=== PATIENT | male | born 1980 | race Caucasian/White ===

== ENCOUNTER 2019-10-04 20:49 | Emergency (ER) | payer BC, OTHER ==
[~2019-10-04] VITALS: Ht 188 cm; Wt 131.7 kg
[~2019-10-04 20:49] MED LIST: AMOX1TAB61 PO; MUPI15CR TP
[2019-10-04 20:57] VITALS: BP 139/98
--- NOTE | 2019-10-04 21:44 | RAD ---
Two-view chest dated 10/04/2019. Comparison made to 06/29/2007. CLINICAL INDICATION: Chest congestion and cough. FINDINGS: PA and lateral views obtained. Heart and mediastinal contours within normal limits. Lungs are clear. No consolidation or pleural effusion. No pneumothorax. Prominent perihilar linear markings, unchanged. IMPRESSION: No acute radiographic abnormality. Stable findings compared to 06/29/2007. Electronically signed by: Rafael Avitia MD (10/04/2019 9:41 PM) [id number]
[2019-10-04 22:02] LABS: INFLUENZA A PATIENT NEGATIVE (NEGATIVE); INFLUENZA B PATIENT NEGATIVE (NEGATIVE)
[2019-10-04] MEDS ORDERED: ALBU2.5V8 IH (22:02)
[2019-10-04] MEDS ORDERED: GUAI118L13 PO (22:02)
[2019-10-04] MEDS ORDERED: BENZ100C PO (22:02)
--- NOTE | 2019-10-04 22:04 | PHYS DOC ---
Past History Past Medical History: Depression, High Cholesterol, Hypertension Additional Past Medical Histor: PTSD Past Surgical History: No Surgical History Smoking: Non-smoker Alcohol Use: Occasionally Drug Use: None Adult General Chief Complaint Chief Complaint: SHORTNESS OF BREATH HPI HPI 39-year-old male presents with 4 day history of shortness of air, generalized malaise, and cough. 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 Patient reports he was exposed to positive COVID-19 patients. Denies trauma. Reports fever and chills. Patient reports he has been tested for COVID-19 on 10/02/19 and test was negative. Reports symptoms have not improved but gotten worse. Review of Systems Review of Systems Constitutional: Reports fever, chills, bodyaches, and generalized malaise Eyes: Denies redness or eye pain HENT: Denies nasal congestion or sore throat Respiratory: Reports cough and shortness of breath Cardiovascular: Denies chest pain or palpitations GI: Denies abdominal pain, nausea, or vomiting : Denies dysuria or hematuria Musculoskeletal: Denies back pain or joint pain Integument: Denies rash or skin lesions Neurologic: Denies headache, focal weakness or sensory changes Complete systems were reviewed and found to be within normal limits, except as documented in this note. Allergies Allergies Allergies Coded Allergies Type Severity Reaction Last Updated Verified No Known Drug Allergies 01/26/15 No Physical Exam Physical Exam Constitutional: Well developed, well nourished, no acute distress, ill but non- toxic appearance HENT: Normocephalic, atraumatic Eyes: Conjunctiva normal, no discharge Neck: Normal range of motion, no tenderness, supple Cardiovascular: Heart rate normal, regular rhythm Lungs & Thorax: Bilateral breath sounds clear to auscultation, no wheezing Skin: Warm, dry, no erythema, no rash Extremities: No tenderness, ROM intact, no edema Neurologic: Alert and oriented X 3, no focal deficits noted Psychologic: Affect normal, judgment normal Current Patient Data Vital Signs Vital Signs Date Time Temp Pulse Resp B/P (MAP) Pulse Ox O2 Delivery O2 Flow Rate FiO2 10/04/19 20:57 98.1 130 22 139/98 (112) 97 Room Air Lab Results Laboratory Tests Test 10/04/19 21:05 Group A Streptococcus Rapid Negative (NEGATIVE) EKG EKG [] Radiology/Procedures Radiology/Procedures PROCEDURE: CHEST PA & LATERAL Two-view chest dated 10/04/2019. Comparison made to 06/29/2007. CLINICAL INDICATION: Chest congestion and cough. FINDINGS: PA and lateral views obtained. Heart and mediastinal contours within normal limits. Lungs are clear. No consolidation or pleural effusion. No pneumothorax. Prominent perihilar linear markings, unchanged. IMPRESSION: No acute radiographic abnormality. Stable findings compared to 06/29/2007. Electronically signed by: Bijan Avitia MD (10/04/2019 9:41 PM) [id number] Course & Med Decision Making Course & Med Decision Making Pertinent Labs and Imaging studies reviewed. (See chart for details) Patient presents with fever/chills, body aches, generalized malaise, and cough 4 days. Patient reports increased shortness of air. 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 Reports he was tested on 10/02/19 which was reportedly NEGATIVE. VS stable. CXR without acute process. Rapid influenza and strep negative. Patient advised to self-quarantine has previous results for COVID-19 may have been falsely negative. Patient stable for discharge with outpatient follow-up with PCP. Discussed findings and plan with patient, who acknowledges understanding and agreement. Dragon Disclaimer Dragon Disclaimer This electronic medical record was generated, in whole or in part, using a voice recognition dictation system. Departure Departure: Impression: Primary Impression: Bronchitis Disposition: HOME, SELF-CARE Condition: STABLE Referrals: NON,STAFF (PCP) Patient Instructions: Acute Bronchitis, [id number] Additional Instructions: Despite reportedly prior negative COVID-19 testing, it is advised that you self- quarantine. Like any tests there can be false negatives. Treat fever with over the counter Tylenol. Use humidifier at night. Scripts Guaifenesin/Codeine Phosphate (GUAIFENESIN-CODEINE SYRUP) 118 Ml Liquid 10 ML PO Q4HRS PRN for COUGH, #240 ML Prov: BIJAN ORR DO 10/04/19 Benzonatate (TESSALON PERLE) 100 Mg Capsule 1 CAP PO TID PRN for COUGH, #21 CAP Prov: BIJAN ORR DO 10/04/19 Albuterol Sulfate (PROAIR HFA INHALER) 8.5 Gm Hfa.aer.ad 2 PUFF IH Q6HRS PRN for wheezing, #1 INHALER 0 Refills Prov: BIJAN ORR DO 10/04/19 BIJAN ORR DO Oct 04, 2019 22:04
== END 2019-10-04 22:15 | disposition home or self-care (01) ==
LOC: ER 20:49
DX: J40 Bronchitis, not specified as acute or chronic (principal); E78.00 Pure hypercholesterolemia, unspecified; I10 Essential (primary) hypertension; F43.10 Post-traumatic stress disorder, unspecified
CPT/HCPCS: 71046; 87070; 87804; 87880; 99284